=== PATIENT | female | born 1955 | race Caucasian/White ===

== ENCOUNTER 2016-10-17 07:54 | Inpatient (IN) | payer MEDICARE ==
[~2016-10-17] VITALS: Ht 165.1 cm; Wt 90.0 kg
[2016-10-17] MEDS ORDERED: ONDANSETRON ODT 4 MG PO ONE (08:30)
[2016-10-17] MEDS ORDERED: HYDROmorphone 1 MG/ML, 1ML IM ONE (08:30)
[2016-10-17] MEDS ORDERED: DIAZEPAM 5 MG TABLET PO ONE (08:30)
[2016-10-17] MEDS ORDERED: DIAZEPAM 5 MG TABLET ONE (08:33)
[2016-10-17] MEDS ORDERED: HYDROmorphone 1 MG/ML, 1ML ONE (08:33)
[2016-10-17] MEDS ORDERED: ONDANSETRON ODT 4 MG ONE (08:33)
[2016-10-17] MEDS ORDERED: CLON0.5T20 PO (10:40)
[2016-10-17] MEDS ORDERED: NALO25TA PO (10:40)
[2016-10-17] MEDS ORDERED: LISI-170 PO (10:40)
[2016-10-17] MEDS ORDERED: OXYC-223 PO (10:40)
[2016-10-17] MEDS ORDERED: TIZA4TAB PO (10:40)
[2016-10-17] MEDS ORDERED: TRAZ100T15 PO (10:40)
[2016-10-17] MEDS ORDERED: SODIUM CHLORIDE FLUSH 10ML SYR IVF ONE (11:00)
[2016-10-17 11:28] LABS: BLOOD UREA NITROGEN 25 mg/dL (7-18)
[2016-10-17] MEDS ORDERED: GADOBUTROL 10 MMOL/10 ML PFS ONE (12:01)
[2016-10-17 12:53] VITALS: BP 143/84
[2016-10-17] MEDS ORDERED: ONDANSETRON ODT 4 MG PO PRN (15:30)
[2016-10-17] MEDS ORDERED: LABETALOL 5MG/ML, 20ML IV PRN (15:30)
[2016-10-17] MEDS ORDERED: KETOROLAC 30 MG/1 ML IVPush PRN (15:30)
[2016-10-17] MEDS ORDERED: LORazepam 0.5MG TABLET PO PRN (15:30)
[2016-10-17] MEDS ORDERED: ONDANSETRON 2MG/ML, 2ML IVP PRN (15:30)
[2016-10-17] MEDS ORDERED: FESO4TAB PO (16:00)
[2016-10-17] MEDS ORDERED: PREG75CA PO (16:00)
[2016-10-17] MEDS ORDERED: DULO60CA7 PO (16:00)
[2016-10-17] MEDS ORDERED: TIZA4CAP2 PO (16:00)
[2016-10-17] MEDS ORDERED: DICL50TA2 PO (16:00)
[2016-10-17] MEDS: GABAPENTIN 100 MG CAPSULE PO SCH ×2 (18:49→20:40)
[2016-10-17] MEDS: OXYcodone/APAP 7.5/325MG TABLET PO PRN (18:49)
[2016-10-17 19:50] VITALS: BP 132/78
[2016-10-17] MEDS: PREGABALIN 75 MG CAPSULE PO SCH (20:40)
[2016-10-17] MEDS: ENOXAPARIN 40 MG/0.4 ML SQ SCH (20:41)
[2016-10-17] MEDS: TEMAZEPAM 15 MG CAPSULE PO PRN (21:55)
[2016-10-18 01:18] VITALS: BP 142/88
[2016-10-18 01:41] LABS: DAU SCREEN DISCLAIMER
[2016-10-18 07:07] VITALS: BP 163/87
[2016-10-18] MEDS: PREGABALIN 75 MG CAPSULE PO SCH (09:10)
[2016-10-18] MEDS: POLYETHYLENE GLYCOL 17 GM PACKET PO SCH (09:10)
[2016-10-18] MEDS: LISINOPRIL 20 MG TABLET PO SCH (09:10)
[2016-10-18] MEDS: TIZANIDINE 4MG TABLET PO SCH (09:10)
[2016-10-18] MEDS: GABAPENTIN 100 MG CAPSULE PO SCH ×3 (09:10→20:50)
[2016-10-18] MEDS: OXYcodone/APAP 7.5/325MG TABLET PO PRN (09:54)
[2016-10-18] MEDS: HYDROCHLOROTHIAZIDE 12.5 MG CAPSULE PO SCH (12:26)
[2016-10-18 13:56] VITALS: BP 108/72
[2016-10-18] MEDS: CITALOPRAM 20 MG TABLET PO SCH (14:20)
[2016-10-18] MEDS: METHYLPHENIDATE 10 MG TABLET PO SCH (15:00)
[2016-10-18] MEDS: ACETAMINOPHEN 325 MG TABLET PO PRN ×2 (17:27→22:58)
[2016-10-18 19:26] VITALS: BP 152/73
[2016-10-18] MEDS: OLANZAPINE 2.5 MG TABLET PO SCH (20:50)
[2016-10-18] MEDS: ENOXAPARIN 40 MG/0.4 ML SQ SCH (20:54)
[2016-10-18] MEDS: TEMAZEPAM 15 MG CAPSULE PO PRN (21:51)
[2016-10-19 01:33] VITALS: BP 144/87
[2016-10-19 06:44] VITALS: BP 162/100
[2016-10-19] MEDS: OXYcodone/APAP 7.5/325MG TABLET PO PRN ×2 (07:51→18:36)
[2016-10-19] MEDS: CITALOPRAM 20 MG TABLET PO SCH (09:00)
[2016-10-19] MEDS: GABAPENTIN 100 MG CAPSULE PO SCH ×3 (09:21→21:30)
[2016-10-19] MEDS: TIZANIDINE 4MG TABLET PO SCH (09:21)
[2016-10-19] MEDS: HYDROCHLOROTHIAZIDE 12.5 MG CAPSULE PO SCH (09:21)
[2016-10-19] MEDS: METHYLPHENIDATE 10 MG TABLET PO SCH (09:21)
[2016-10-19] MEDS: LISINOPRIL 20 MG TABLET PO SCH (09:21)
[2016-10-19] MEDS: POLYETHYLENE GLYCOL 17 GM PACKET PO SCH (09:28)
[2016-10-19] MEDS ORDERED: METHYLPHENIDATE 10 MG TABLET PO SCH (12:00)
[2016-10-19] MEDS: CEFDINIR 300 MG CAPSULE PO SCH ×2 (12:20→21:30)
[2016-10-19 14:10] VITALS: BP 146/91
[2016-10-19] MEDS: ACETAMINOPHEN 325 MG TABLET PO PRN (17:03)
[2016-10-19 20:00] VITALS: BP 157/78
[2016-10-19] MEDS ORDERED: GABAPENTIN 400 MG CAPSULE PO SCH (21:00)
[2016-10-19] MEDS: ENOXAPARIN 40 MG/0.4 ML SQ SCH (21:30)
[2016-10-19] MEDS: OLANZAPINE 2.5 MG TABLET PO SCH (21:32)
[2016-10-20 02:43] VITALS: BP 120/71
[2016-10-20 06:50] VITALS: BP 151/77
[2016-10-20] MEDS: CEFDINIR 300 MG CAPSULE PO SCH (08:13)
[2016-10-20] MEDS: POLYETHYLENE GLYCOL 17 GM PACKET PO SCH (08:13)
[2016-10-20] MEDS: TIZANIDINE 4MG TABLET PO SCH (08:14)
[2016-10-20] MEDS: GABAPENTIN 100 MG CAPSULE PO SCH (08:14)
[2016-10-20] MEDS: LISINOPRIL 20 MG TABLET PO SCH (08:14)
[2016-10-20] MEDS: HYDROCHLOROTHIAZIDE 12.5 MG CAPSULE PO SCH (08:17)
[2016-10-20] MEDS: OXYcodone/APAP 7.5/325MG TABLET PO PRN (10:08)
[2016-10-20] MEDS ORDERED: DULOXETINE 30 MG CAPSULE.DR PO SCH (10:30)
[2016-10-20 12:50] VITALS: BP 122/85
[2016-10-20] MEDS ORDERED: OLAN2.5T5 PO (14:37)
[2016-10-20] MEDS ORDERED: DULO30CA2 PO (14:37)
[2016-10-20] MEDS ORDERED: GABA100C8 PO (14:37)
[2016-10-20] MEDS ORDERED: GABA-827 PO (14:37)
[2016-10-20] MEDS ORDERED: HYDR12.53 PO (14:37)
[2016-10-20] MEDS ORDERED: CEFD300C37 PO (14:38)
== END 2016-10-20 16:43 | disposition home or self-care (01) | DRG 885 ==
LOC: ED 10:08 → EDIP 10:53 → 3NE 11:27 → DCLOUNGE 10-20 16:06
DX: F33.1 Major depressive disorder, recurrent, moderate (principal); N39.0 Urinary tract infection, site not specified; M79.7 Fibromyalgia; I10 Essential (primary) hypertension; E66.9 Obesity, unspecified; F43.21 Adjustment disorder with depressed mood; F17.210 Nicotine dependence, cigarettes, uncomplicated; F41.0 Panic disorder [episodic paroxysmal anxiety]; F41.8 Other specified anxiety disorders; F51.04 Psychophysiologic insomnia; F90.9 Attention-deficit hyperactivity disorder, unspecified type; G89.29 Other chronic pain; M19.90 Unspecified osteoarthritis, unspecified site; M51.16 Intervertebral disc disorders with radiculopathy, lumbar region; Z80.0 Family history of malignant neoplasm of digestive organs; Z81.1 Family history of alcohol abuse and dependence; Z83.3 Family history of diabetes mellitus; Z90.49 Acquired absence of other specified parts of digestive tract; Z98.1 Arthrodesis status; Z98.51 Tubal ligation status; Z80.3 Family history of malignant neoplasm of breast; Z68.33 Body mass index [BMI] 33.0-33.9, adult; Z79.899 Other long term (current) drug therapy
CPT/HCPCS: 36415; 72110; 72131; 72158; 80048; 80307; 81001; 82040; 84439; 84443; 85025; 87077; 87086; 87186; 96372; A9585; J1170; J1650; Q0162